=== PATIENT | female | born 1990 | race African-American/Black ===

== ENCOUNTER 2016-11-03 17:53 | Emergency (ER) | payer OTHER ==
[~2016-11-03] VITALS: Ht 170.2 cm; Wt 68.0 kg
--- NOTE | 2016-11-03 17:57 | NUR ---
Pt c/o chest pain on and off x 2 months, worsening today. non radiating. Placed on monitor. VSS
[2016-11-03] MEDS ORDERED: IBUPROFEN 400 MG TABLET ONE (18:06)
--- NOTE | 2016-11-03 18:08 | NUR ---
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
--- NOTE | 2016-11-03 18:08 | NUR ---
MEDICATIONS GIVEN ORDERED
[2016-11-03] MEDS: IBUPROFEN 400 MG TABLET PO ONE (18:09)
--- NOTE | 2016-11-03 18:13 | NUR ---
EKG AT BEDSIDE IN PROGRESS
--- NOTE | 2016-11-03 18:25 | NUR ---
PT SIGNED WAIVER
--- NOTE | 2016-11-03 19:03 | NUR ---
Patient discharged to home in stable condition. Written and verbal after care instructions given. Patient verbalizes understanding of instruction.
[2016-11-03 19:04] VITALS: BP 112/72
== END 2016-11-03 19:04 | disposition home or self-care (01) ==
LOC: ER 17:59
DX: M94.0 Chondrocostal junction syndrome [Tietze] (principal); Z59.0 Homelessness; F10.20 Alcohol dependence, uncomplicated
CPT/HCPCS: 71010-TC; A4606; Z7610

== ENCOUNTER 2017-01-12 10:16 | Emergency (ER) | payer BC ==
[~2017-01-12] VITALS: Ht 170.2 cm; Wt 67.1 kg
[2017-01-12 10:29] VITALS: BP 104/52
== END 2017-01-12 10:54 | disposition home or self-care (01) ==
LOC: ER 10:21
DX: H61.23 Impacted cerumen, bilateral (principal)
CPT/HCPCS: A4606; Z7610

== ENCOUNTER 2017-02-07 01:26 | Emergency (ER) | payer BC ==
[~2017-02-07] VITALS: Ht 170.2 cm; Wt 68.0 kg
[2017-02-07 01:30] VITALS: BP 115/53
[2017-02-07] MEDS ORDERED: HYDROCODONE/APAP 5/325MG 1 EACH TABLET ONE (02:47)
[2017-02-07] MEDS ORDERED: IBUPROFEN 400 MG TABLET ONE (02:52)
[2017-02-07] MEDS: IBUPROFEN 400 MG TABLET PO ONE (02:53)
[2017-02-07] MEDS ORDERED: HYDROCODONE/APAP 5/325MG 1 EACH TABLET PO ONE (03:00)
== END 2017-02-07 03:03 | disposition home or self-care (01) ==
LOC: ER 01:29
DX: S62.394A Other fracture of fourth metacarpal bone, right hand, initial encounter for closed fracture (principal); W22.01XA Walked into wall, initial encounter; Y92.89 Other specified places as the place of occurrence of the external cause; Y93.89 Activity, other specified; Y99.8 Other external cause status
CPT/HCPCS: 73130-TC; A4606; Z7610

== ENCOUNTER 2017-02-15 01:04 | Emergency (ER) | payer BC ==
--- NOTE | 2017-02-15 01:45 | NUR ---
CALLED FOR TRIAGE; INFORMED "PT STEPPED OUTSIDE"
--- NOTE | 2017-02-15 02:02 | NUR ---
CALLED AGAIN; INFORMED "PT LEFT"
== END 2017-02-15 02:03 | disposition left against medical advice (07) ==
LOC: ER 01:11
DX: Z53.21 Procedure and treatment not carried out due to patient leaving prior to being seen by health care provider (principal)

== ENCOUNTER 2018-01-08 22:33 | Emergency (ER) | payer BC, MEDICAID, OTHER ==
[~2018-01-08] VITALS: Ht 170.2 cm; Wt 68.0 kg
[2018-01-08 22:33] VITALS: BP 129/74
== END 2018-01-08 23:23 | disposition home or self-care (01) ==
LOC: ER 22:38
DX: F41.9 Anxiety disorder, unspecified (principal); F10.10 Alcohol abuse, uncomplicated; Y90.9 Presence of alcohol in blood, level not specified
CPT/HCPCS: 99281; A4606; Z7610; Z7502